=== PATIENT | female | born 1945 | race Caucasian/White ===

== ENCOUNTER 2017-02-20 18:11 | Emergency (ER) | payer MEDICARE ==
[2017-02-20] MEDS ORDERED: ACETAMINOPHEN 325 MG TAB ONE (19:28)
[2017-02-20] MEDS ORDERED: SODIUM CHLORIDE 0.9% 1000ML 1,000 ML IV ONE (19:28)
[2017-02-20] MEDS ORDERED: IPRATROPIUM/ALBUTEROL SULFATE 3 ML SOLUTION IH ONE (19:32)
[2017-02-20 19:34] LABS: APPEARANCE,URINE SL CLOUDY (CLEAR); BILIRUBIN,URINE NEGATIVE (NEGATIVE); COLOR,URINE YELLOW (YELLOW); GLUCOSE, URINE (UA) NEGATIVE (NEGATIVE); KETONES,URINE NEGATIVE (NEGATIVE); LEUKOCYTE ESTERASE ,URINE MODERATE (NEGATIVE); NITRATE,URINE POSITIVE (NEGATIVE); OCCULT BLOOD,URINE TRACE-INTACT (NEGATIVE); PROTEIN,URINE NEGATIVE (NEGATIVE); UROBILINOGEN,URINE 0.2 mg/dL (0.2-1.0)
[2017-02-20 19:35] LABS: BASOPHILS % (AUTO) 0.2 % (0.0-5.0); EOSINOPHILS % (AUTO) 2.9 % (0.0-8.0); HEMATOCRIT 38.5 % (36-48); LYMPHOCYTES % (AUTO) 20.8 % (21.0-51.0); MEAN CORPUSCULAR HGB CONC 34.3 g/dL (32.0-36.0); MEAN CORPUSCULAR VOLUME 90.4 fL (79-99); MONOCYTES % (AUTO) 6.6 % (3.0-13.0); NEUTROPHILS % (AUTO) 69.5 % (40.0-77.0); PLATELET COUNT (AUTO) 185 K/uL (130-400); RED BLOOD CELL COUNT(AUTO) 4.26 MIL/uL (4.00-5.50); RED CELL DISTRIBUTION WIDTH 14.2 % (11.0-15.5); WHITE BLOOD COUNT (AUTO) 7.3 K/uL (4.8-10.8)
[2017-02-20 19:46] LABS: BACTERIA,URINE Moderate /HPF (None Seen)
[2017-02-20 19:47] LABS: SQUAMOUS EPITHELIAL CELL,UR None Seen /LPF (0-2)
[2017-02-20 20:01] LABS: CREATININE 0.9 mg/dL (0.5-1.5); POTASSIUM 3.2 mmol/L (3.5-5.1)
[2017-02-20 20:06] LABS: ALBUMIN 3.7 g/dL (3.5-5.0); BILIRUBIN,TOTAL 0.5 mg/dL (0.2-1.0); TOTAL PROTEIN, SERUM 7.2 g/dL (6.0-8.3)
[2017-02-20] MEDS ORDERED: POTASSIUM BICARB/CIT AC 25 MEQ TABLET.EFF ONE (21:01)
[2017-02-20] MEDS ORDERED: CEFTRIAXONE SODIUM 1 GM ONE (22:54)
== END 2017-02-20 23:22 | disposition home or self-care (01) ==
LOC: EDH 18:11
DX: J21.9 Acute bronchiolitis, unspecified (principal); N39.0 Urinary tract infection, site not specified; Z88.2 Allergy status to sulfonamides
CPT/HCPCS: 36415; 71046 ×2; 80053; 81001; 83605 ×2; 85025; 87040 ×2; 87088; 87186; 87804 ×2; 94640; 96361; 96374; 99285; J0696; J7030

== ENCOUNTER 2018-03-06 18:27 | Emergency (ER) | payer MEDICARE, OTHER ==
[2018-03-06 19:40] LABS: APPEARANCE,URINE Clear (CLEAR); BILIRUBIN,URINE Negative (NEGATIVE); COLOR,URINE Yellow (YELLOW); GLUCOSE, URINE (UA) Negative (NEGATIVE); KETONES,URINE Negative (NEGATIVE); LEUKOCYTE ESTERASE ,URINE Negative (NEGATIVE); NITRATE,URINE Negative (NEGATIVE); OCCULT BLOOD,URINE Negative (NEGATIVE); PROTEIN,URINE Negative (NEGATIVE); UROBILINOGEN,URINE 0.2 mg/dL (0.2-1.0)
[2018-03-06] MEDS ORDERED: AZITHROMYCIN 250 MG TABLET PO ONE (20:07)
[2018-03-06] MEDS ORDERED: BENZONATATE 100 MG CAPSULE PO ONE (20:07)
== END 2018-03-06 20:26 | disposition home or self-care (01) ==
LOC: EDH 18:27
DX: J06.9 Acute upper respiratory infection, unspecified (principal); Z88.2 Allergy status to sulfonamides; Z98.890 Other specified postprocedural states; Z90.49 Acquired absence of other specified parts of digestive tract
CPT/HCPCS: 71045; 81003; 87804

== ENCOUNTER → 2024-02-13 | Outpatient (CLI) | payer OTHER ==
[~2024-02-13] MED LIST: AMOX1TAB15 PO; SELENIUM PO; VITAMIN B PO; VITAMIN C PO; VITAMIN D PO; VITAMIN E PO
--- NOTE | 2024-02-13 11:35 | HMCIMG ---
CT HEART SAVER PROMOTIONAL HISTORY: Calcium scoring COMPARISON: None TECHNIQUE: Computed tomography of the heart was performed with ECG gating and suspended respiration. Postprocessing was performed on a computer workstation to obtain diastolic phase images, determine calcium score and provide a quantitative assessment of extent of disease. This CT included only the heart. HeartSaver score is 10.5. Please see cardiac calcium score report. The available CT chest images show no acute finding. CT was performed with one or more following dose reduction techniques: automated exposure control, adjustment of the mA and kv according to patient's size, or use of a iterative reconstruction technique.
== END | disposition home or self-care (01) ==
LOC: RAH 10:52
PROVIDERS: ATTEND Internal Medicine Cardiovascular Disease
DX: Z13.6 Encounter for screening for cardiovascular disorders (principal)
CPT/HCPCS: 75571

== ENCOUNTER → 2025-01-22 | Outpatient (CLI) | payer MEDICARE ==
--- NOTE | 2025-01-22 21:04 | HMCIMG ---
EXAM: CT Abdomen and Pelvis without Intravenous Contrast CLINICAL HISTORY: Unspecified Hydronephrosis TECHNIQUE: Axial computed tomography images of the abdomen and pelvis without intravenous contrast. Dose reduction technique was used including one or more of the following: automated exposure control, adjustment of mA and kV according to patient size, and/or iterative reconstruction. CONTRAST: Without COMPARISON: None provided. FINDINGS: LUNG BASES: No basilar airspace consolidation or pleural effusion. LIVER: Hepatic cyst in the caudate lobe measuring 2 cm. GALLBLADDER AND BILE DUCTS: The gallbladder is surgically absent. No ductal dilation. PANCREAS: Unremarkable. SPLEEN: Unremarkable. ADRENAL GLANDS: Unremarkable. 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 Multiple bilateral renal stones. No hydronephrosis. No ureteral or bladder calculi. STOMACH AND BOWEL: No obstruction. No wall thickening. No CT evidence of colitis or acute diverticulitis. APPENDIX: No CT evidence for appendicitis. PERITONEUM: No free fluid. No free air. LYMPH NODES: No lymphadenopathy. REPRODUCTIVE: Unremarkable as visualized. VASCULATURE: No aortic aneurysm. ABDOMINAL WALL AND SOFT TISSUES: Unremarkable. BONES: Degenerative changes are identified in the spine. . IMPRESSION: 1. No obstructing ureteric calculus or hydronephrosis. 2. 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 3. Multiple bilateral renal stones. 4. Incidental hepatic cyst and prior cholecystectomy, see report body for details. /Mccaulley
== END | disposition home or self-care (01) ==
LOC: RAH 14:31
PROVIDERS: ATTEND Internal Medicine Nephrology
DX: N13.2 Hydronephrosis with renal and ureteral calculous obstruction (principal); K76.89 Other specified diseases of liver; M47.817 Spondylosis without myelopathy or radiculopathy, lumbosacral region; Z90.49 Acquired absence of other specified parts of digestive tract
CPT/HCPCS: 74176